=== PATIENT | female | born 1970 | race Caucasian/White ===

== ENCOUNTER 2019-09-28 17:13 | Emergency (ER) | payer BC ==
[2019-09-28 18:02] VITALS: BP 145/91
--- NOTE | 2019-09-28 18:46 | UC ---
Skin Complaint HPI - HPI Summary HPI Summary: 49 y/o female presents to the urgent care c/o B/L arms, lower legs and abdomen w / itchiness since this morning. Pt reports last night she tried some dry beans and also a raisin grain bread, but sh eis unsure if it is the cause of the marko. she states not new detergent or body lotions or being outside her house. She noticed the rash w/ itchiness after she shower this morning and as she waits here new spots have appeared. Her daughter was recently Tx for scabies and they sleep together, but her rash is different and she cleaned everything w/ hot water. Pt denies hoarseness, throat swelling, difficulty breathing, SOB, chest pain, CHOWDHURY dizziness, abdominal pain, N/V/d. - History of Current Complaint Chief Complaint: UCRash Time Seen by Provider: 09/28/19 18:38 Stated Complaint: RASH Hx Obtained From: Patient Hx Last Menstrual Period: 09/15/19 ?: No Onset/Duration: Sudden Onset, Lasting Hours - 12 hrs, Still Present, Worse Since - new one hives are appering and others are resolving Skin Exposure Onset/Duration: Days Ago - 1 day she ate a new rasing bread and new mcfarlane soup last night. This morning she worke up w/ the rash Timing: Constant Onset Severity: Mild Current Severity: Moderate - itchy rash in B/L arms, legs, buttocks, abdomen and back Pain Intensity: 0 Pain Scale Used: 0-10 Numeric Location: Diffuse - itchy rash in B/L arms, legs, buttocks, abdomen and back Character: Pruritus, Hives Aggravating Factor(s): Touch Alleviating Factor(s): Nothing Associated Signs & Symptoms: Positive: Rash - itchy rash in B/L arms, legs, buttocks, abdomen and back. Negative: Nausea, Vomiting, Difficulty Breathing, Fever, Chills, Hoarseness, Throat Tightening, Drainage, Tenderness Related History: Possible Reaction to: Food - ate new raising bread and new mcfarlane soup last night - Allergy/Home Medications Allergies/Adverse Reactions: Allergies Allergy/AdvReac Type Severity Reaction Status Date / Time amoxicillin Allergy Hives Verified 09/28/19 18:03 ciprofloxacin [From Cipro] Allergy Hives Verified 09/28/19 18:03 Penicillins Allergy Hives Verified 09/28/19 18:03 PMH/Surg Hx/FS Hx/Imm Hx Previously Healthy: Yes Other GI/ History: ovarian cyst - Surgical History Surgical History: None - Family History Known Family History: Positive: Blood Disorder - brother with blood clot in leg from airplane ride, no clotting d/o - Social History Occupation: Employed Full-time Lives: With Family Alcohol Use: None Substance Use Type: None Smoking Status (MU): Never Smoked Tobacco Review of Systems All Other Systems Reviewed And Are Negative: Yes Constitutional: Positive: Negative Skin: Positive: Rash - itchy rash in B/l arms, legs and abdomen Eyes: Positive: Negative ENT: Positive: Negative Respiratory: Positive: Negative Cardiovascular: Positive: Negative Gastrointestinal: Positive: Negative Genitourinary: Positive: Negative Motor: Positive: Negative Neurovascular: Positive: Negative Musculoskeletal: Positive: Negative Neurological: Positive: Negative Psychological: Positive: Negative Is Patient Immunocompromised?: No Physical Exam - Summary Physical Exam Summary: Vital Signs Reviewed: Yes General: well developed, well nourished female sitting in the examining table w/ o any apparent distress. Eyes: Positive: Conjunctiva Clear - PERRLA, EOMI ENT: Positive: Normal ENT inspection, Hearing grossly normal, Pharynx normal, TMs normal Neck: Positive: Supple, Nontender, No Lymphadenopathy Respiratory: Positive: Chest nontender, Lungs clear, Normal breath sounds Cardiovascular: Positive: RRR, No Murmur, Pulses Normal Abdomen Description: Positive: Nontender, No Organomegaly, Soft. Negative: CVA Tenderness (R), CVA Tenderness (L) Bowel Sounds: Positive: Present Musculoskeletal: Positive: Strength Intact, ROM Intact, No Edema Neurological Exam: Normal Psychological Exam: Normal Skin: B/l arms, lower legs and abdomen and neck w/ scattered erythematous patches w/ signs or excoriation, no drainage observed, non tender to palpation. No drainage. Triage Information Reviewed: Yes Vital Signs: Initial Vital Signs Temp 97.7 F 09/28/19 17:54 Pulse 98 09/28/19 17:54 Resp 16 09/28/19 17:54 BP 145/91 09/28/19 17:54 Pulse Ox 99 09/28/19 17:54 Course/Dx - Course Course Of Treatment: 49 y/o female presents to the urgent care c/o B/L arms, lower legs and abdomen w / itchiness since this morning. Pt reports last night she tried some dry beans and also a raisin grain bread, but sh eis unsure if it is the cause of the marko. she states not new detergent or body lotions or being outside her house. She noticed the rash w/ itchiness after she shower this morning and as she waits here new spots have appeared. Her daughter was recently Tx for scabies and they sleep together, but her rash is different and she cleaned everything w/ hot water. Pt denies hoarseness, throat swelling, difficulty breathing, SOB, chest pain, CHOWDHURY dizziness, abdominal pain, N/V/d. Pt with a general allergic reaction due to unspecified source, possible food reaction. Pt advised to not to eat the dry beans and the bread. Pt decline IM inj of Methyprednisolone , she is afraid of needles. Pt given Prednisone PO, Famotidine and Benadryl PO at the clinic and Rx similar medications.Pt tolerated well medication and felt better rash resolving. Pt advised if rash worsens despite medications and she develops SOB to immediately go to the ER for further treatment.Pt's BP is elevated today advised to decrease salt in diet, monitor BP and f/u with PCP for further management. Pt understood and agreed with plan of care. - Differential Diagnoses - Skin Complaint Differential Diagnoses: Abscess, Allergic Reaction, Anaphylaxis, Cellulitis, Contact Dermatitis, Local Allergic Reaction, Scabies, Urticaria - Diagnoses Provider Diagnosis: Acute allergic reaction, Rash and nonspecific skin eruption, Elevated BP without diagnosis of hypertension Discharge ED - Sign-Out/Discharge Documenting (check all that apply): Patient Departure - D/C home All imaging exams completed and their final reports reviewed: No Studies - Discharge Plan Condition: Stable Disposition: HOME Prescriptions: diPHENhydraMINE PO* [Benadryl PO 25 MG TAB*] 25 mg PO Q6H PRN #30 tab PRN Reason: pruritus predniSONE TAB* [Deltasone 20 MG TAB*] 20 mg PO DAILY #8 tab Patient Education Materials: General Allergic Reaction (ED) Referrals: Saige Mortensen CNM [Primary Care Provider] - 2 Days Ramona Huber [Medical Doctor] - If Needed Additional Instructions: 1-Please Start taking Prednisone PO taper dose starting tomorrow. first loading dose given today at the clinic. 2- Continue taking Benadryl PO to alleviate itchiness. Apply Hydrocortisone topical cream as directed. Avoid exposure to the sun. 3-If symptoms do not improve or worsen please f/u with your PCP or Cvicu Rn in 2-3 days for further evaluation and treatment. 4- If symptoms worsen and you develop SOB or difficulty breathing please go immediately to the Er for further management. 5- Your BP is elevated today advised to decrease salt in diet, monitor BP and f/ u with PCP for further management. - Billing Disposition and Condition Condition: STABLE Disposition: Home
[2019-09-28] MEDS ORDERED: methylPREDNISolone 125 MG* 2 ML VIAL IM ONE (18:59)
[2019-09-28] MEDS ORDERED: diPHENhydraMINE PO* 25 MG PO ONE (18:59)
[2019-09-28] MEDS ORDERED: Famotidine TAB* 20 MG PO ONE (19:00)
[2019-09-28] MEDS ORDERED: predniSONE TAB* 20 MG PO ONE (19:11)
[2019-09-28] MEDS ORDERED: Hydrocortisone 1% CREAM* 30 GM TUBE TOPICAL ONE (19:14)
[2019-09-28] MEDS ORDERED: Hydrocortisone 1% CREAM* 30 GM TUBE TOPICAL SCH (21:00)
== END 2019-09-28 19:31 | disposition home or self-care (01) ==
LOC: UCCORT 17:13
DX: R21 Rash and other nonspecific skin eruption (principal); T78.40XA Allergy, unspecified, initial encounter; R03.0 Elevated blood-pressure reading, without diagnosis of hypertension; Z88.0 Allergy status to penicillin; Z88.1 Allergy status to other antibiotic agents; Y92.9 Unspecified place or not applicable
CPT/HCPCS: 99213; A9270-GY; G0463; J2930; J7512

== ENCOUNTER 2019-10-20 10:56 | Emergency (ER) | payer BC ==
[2019-10-20 12:01] VITALS: BP 132/73
--- NOTE | 2019-10-20 12:50 | UC ---
FLU HPI - HPI Summary HPI Summary: 4 to 5 day history of fever, congestion, chest tightness and cough. Currently feeling nauseated but has not vomited. Spouse and daughter have had similar illness. - History of Current Complaint Chief Complaint: UCRespiratory Stated Complaint: CONGESTION,COUGH,BODY ACHES Time Seen by Provider: 10/20/19 12:46 Hx Obtained From: Patient Hx Last Menstrual Period: 10/16/19 Onset/Duration: Gradual Onset, Lasting Days Severity Currently: Mild Severity Initially: Moderate Pain Intensity: 2 Associated Signs & Symptoms: Positive: Fever, Myalgia, Sore Throat, Nasal Congestion, Headache - Risk Factors Influenza Risk Factors: Negative - Allergy/Home Medications Allergies/Adverse Reactions: Allergies Allergy/AdvReac Type Severity Reaction Status Date / Time amoxicillin Allergy Hives Verified 10/20/19 12:01 ciprofloxacin [From Cipro] Allergy Hives Verified 10/20/19 12:01 Penicillins Allergy Hives Verified 10/20/19 12:01 Home Medications: Home Medications Ibuprofen TAB* [Motrin TAB* 600 MG] 600 mg PO Q6H PRN 10/20/19 [History Confirmed 10/20/19] PMH/Surg Hx/FS Hx/Imm Hx Previously Healthy: Yes - overweight - Surgical History Surgical History: Yes Surgery Procedure, Year, and Place: 10/02/19 uterine laparoscopy - Family History Known Family History: Positive: Blood Disorder - brother with blood clot in leg from airplane ride, no clotting d/o, Other - mother of lymphoma - Social History Occupation: Employed Full-time - SAHM Lives: With Family Alcohol Use: None Substance Use Type: None Smoking Status (MU): Former Smoker Review of Systems All Other Systems Reviewed And Are Negative: Yes Constitutional: Positive: Fever, Fatigue Skin: Positive: Negative Eyes: Positive: Negative ENT: Positive: Sore Throat, Nasal Discharge, Sinus Congestion Respiratory: Positive: Shortness Of Breath, Cough Cardiovascular: Positive: Negative. Negative: Palpitations, Chest Pain Gastrointestinal: Positive: Nausea Genitourinary: Positive: Negative Motor: Positive: Negative Neurovascular: Positive: Negative Musculoskeletal: Positive: Myalgia Neurological: Positive: Headache Psychological: Positive: Negative Is Patient Immunocompromised?: No Physical Exam Triage Information Reviewed: Yes Appearance: Ill-Appearing - looks mildly unwell Vital Signs: Initial Vital Signs Temp 99.3 F 10/20/19 11:55 Pulse 98 10/20/19 11:55 Resp 18 10/20/19 11:55 BP 132/73 10/20/19 11:55 Pulse Ox 98 10/20/19 11:55 ENT: Positive: Pharyngeal erythema, TMs normal Neck: Positive: Supple, Nontender, No Lymphadenopathy Respiratory: Positive: Lungs clear, Normal breath sounds Cardiovascular: Positive: RRR, No Murmur Musculoskeletal Exam: Normal Musculoskeletal: Positive: Strength Intact, ROM Intact Neurological Exam: Normal Neurological: Positive: Alert Psychological Exam: Normal Skin Exam: Normal Diagnostics - Laboratory Lab Results: influenza B positive Flu Course/Dx - Course Course Of Treatment: symptomatic treatment of influenza B - Differential Dx/Diagnosis Provider Diagnosis: Influenza B Discharge ED - Sign-Out/Discharge Documenting (check all that apply): Patient Departure All imaging exams completed and their final reports reviewed: No Studies - Discharge Plan Condition: Stable Disposition: HOME Patient Education Materials: Influenza (ED) Referrals: Saige Mortensen CNM [Primary Care Provider] - Additional Instructions: Continue symptomatic treatment of flu, ensuring a high intake of fludis and rest. Follow up if you have shortness of breath or increasing chest pain. - Billing Disposition and Condition Condition: STABLE Disposition: Home
[2019-10-20] MEDS ORDERED: Ondansetron ODT TAB* 4 MG PO ONE (12:57)
[2019-10-20 13:05] LABS: Influenza B Molecular POSITIVE (Negative)
== END 2019-10-20 13:33 | disposition home or self-care (01) ==
LOC: UCCORT 10:56
DX: J11.1 Influenza due to unidentified influenza virus with other respiratory manifestations (principal); Z88.0 Allergy status to penicillin; Z88.1 Allergy status to other antibiotic agents
CPT/HCPCS: 99212; A9270-GY; G0463